=== PATIENT | male | born 1965 | race Caucasian/White ===

== ENCOUNTER 2016-03-24 09:39 | Outpatient (CLI) | payer OTHER ==
[2016-03-24 11:48] LABS: #Basophils 0.1 thou/uL (0.0-0.2); #Eosinphils 0.1 thou/uL (0.0-0.7); #Lymphocytes 0.8 thou/uL (1.20-3.40); #Monocytes 0.5 thou/uL (0.11-0.59); #Neutrophils 2.8 thou/uL (1.40-6.50); %Basophils 1.7 % (0.0-1.0); %Eosinophils 2.4 % (0.0-10.0); %Monocytes 12.1 % (0.0-10.0); Hematocrit 44.3 % (42.0-52.0); Mean Platelet Volume 7.1 fL (7.4-10.4); White Blood Cell (WBC) Count 4.3 thou/uL (4.8-10.8)
[2016-03-24 12:04] LABS: ALT (SGPT) 49 U/L (0-55); AST (SGOT) 53 U/L (5-34); Alkaline Phosphatase 61 U/L (40-150); Anion Gap 15 mmol/L (10-20); BUN (Urea Nitrogen) 5 mg/dL (8.9-20.6); Bilirubin, Total 0.8 mg/dL (0.2-1.2); Calc. Creatinine Clearance 0 mL/min (70-130); Calcium 9.5 mg/dL (7.8-10.44); Carbon Dioxide 26 mmol/L (22-29); Chloride 104 mmol/L (98-107); Estimated GFR-MDRD 81; Globulin 3.5 g/dL (2.4-3.5); LDL Cholesterol, Calculated 97 mg/dL; Protein, Total 7.8 g/dL (6.0-8.3)
== END 2016-03-24 09:40 | disposition home or self-care (01) ==
LOC: BURLAB 09:39
PROVIDERS: ATTEND Physician Assistant
DX: I10 Essential (primary) hypertension (principal)
CPT/HCPCS: 36415; 80053; 80061; 84443; 85025

== ENCOUNTER 2016-07-18 14:13 | Outpatient (CLI) | payer OTHER ==
[2016-07-18 17:10] LABS: #Basophils 0.1 thou/uL (0.0-0.2); #Eosinphils 0.1 thou/uL (0.0-0.7); #Monocytes 0.5 thou/uL (0.11-0.59); #Neutrophils 4.8 thou/uL (1.40-6.50); %Basophils 1.3 % (0.0-1.0); %Eosinophils 1.6 % (0.0-10.0); %Lymphocytes 17.8 % (21.0-51.0); %Monocytes 7.6 % (0.0-10.0); %Neutrophils 71.7 % (42.0-75.0); Hemoglobin 14.7 g/dL (14.0-18.0); MDiff Complete? YES; Manual Diff?? NO; Mean Corpuscular HGB CONC 34.8 g/dL (32.0-36.0); Mean Corpuscular Hemoglobin 34.8 pg (27.0-31.0); Mean Corpuscular Volume 99.8 fl (80.0-94.0); Mean Platelet Volume 8.4 fL (7.4-10.4); Platelet Count 223 thou/uL (130-400); RBC Distribution Width 11.5 % (11.5-14.5); Red Blood Cell (RBC) Count 4.24 mill/uL (4.70-6.10); White Blood Cell (WBC) Count 6.6 thou/uL (4.8-10.8)
== END 2016-07-18 14:14 ==
LOC: HPCALD 14:13
PROVIDERS: ATTEND Physician Assistant
DX: D72.819 Decreased white blood cell count, unspecified (principal)
CPT/HCPCS: 36415; 85025

== ENCOUNTER 2016-07-25 08:57 | Outpatient (CLI) | payer OTHER ==
[2016-07-25] MEDS ORDERED: Iopamidol 370 76% 100 ML VIAL ONE (09:00)
--- NOTE | 2016-07-25 22:22 | CT ---
CT OF THE NECK SOFT TISSUES WITH CONTRAST 07/25/[address] of the neck was performed. Axial slices were acquired, then coronal and sagittal reconstru ctions were done. No oropharyngeal masses were appreciated. Soft tissues of the laryngeal region were reasonably symme trical. There was no amount of excessive cervical adenopathy. The patient's submandibular glands wer e somewhat generous in size but symmetrical. A minimal amount of mucosal thickening was seen in the floor of the left maxillary sinus. There were no structures that pathologically enhanced. There are numerous degenerative changes throughout the cervical spine. In particular there is a very large anterior osteophyte at C6-C7 protruding towards the left. This could be a potential cause for dysphagia as it does appear to impinge upon the esophagus slightly. IMPRESSION: 1. No acute pathology identified. 2. Very large anterior osteophyte towards the left at C6-C7, a possible cause of dysphagia. POS: HOME
== END 2016-07-25 08:58 | disposition home or self-care (01) ==
LOC: BURCT 08:57
PROVIDERS: ATTEND Physician Assistant
DX: D72.819 Decreased white blood cell count, unspecified (principal); R49.0 Dysphonia; R59.1 Generalized enlarged lymph nodes
CPT/HCPCS: 70491

== ENCOUNTER 2016-09-25 14:26 | Outpatient (CLI) | payer OTHER ==
[2016-09-25 14:53] LABS: #Basophils 0.1 thou/uL (0.0-0.2); #Lymphocytes 1.1 thou/uL (1.20-3.40); #Monocytes 0.7 thou/uL (0.11-0.59); #Neutrophils 7.6 thou/uL (1.40-6.50); %Basophils 1.1 % (0.0-1.0); %Eosinophils 0.5 % (0.0-10.0); %Lymphocytes 11.4 % (21.0-51.0); %Monocytes 7.1 % (0.0-10.0); %Neutrophils 79.9 % (42.0-75.0); Hemoglobin 14.7 g/dL (14.0-18.0); Mean Corpuscular HGB CONC 34.4 g/dL (32.0-36.0); Mean Corpuscular Hemoglobin 34.2 pg (27.0-31.0); Mean Corpuscular Volume 99.4 fl (80.0-94.0); Mean Platelet Volume 8.1 fL (7.4-10.4); Platelet Count 230 thou/uL (130-400); RBC Distribution Width 11.6 % (11.5-14.5); White Blood Cell (WBC) Count 9.6 thou/uL (4.8-10.8)
[2016-09-25 14:55] LABS: MDiff Complete? YES; Manual Diff?? NO
[2016-09-25 15:06] LABS: ALT (SGPT) 40 U/L (8-55); AST (SGOT) 36 U/L (5-34); Albumin 4.4 g/dL (3.5-5.0); Alkaline Phosphatase 71 U/L (40-150); Anion Gap 15 mmol/L (10-20); BUN (Urea Nitrogen) 14 mg/dL (8.9-20.6); Bilirubin, Total 0.8 mg/dL (0.2-1.2); Calc. Creatinine Clearance 0 mL/min (70-130); Calcium 9.3 mg/dL (7.8-10.44); Carbon Dioxide 26 mmol/L (22-29); Chloride 99 mmol/L (98-107); Estimated GFR-MDRD 75; Globulin 3.4 g/dL (2.4-3.5); Glucose 89 mg/dL (70-105); Lipase 38 U/L (8-78); Potassium 4.2 mmol/L (3.5-5.1); Protein, Total 7.8 g/dL (6.0-8.3); Sodium 136 mmol/L (136-145)
== END 2016-09-25 14:27 | disposition home or self-care (01) ==
LOC: HPCALD 14:26
PROVIDERS: ATTEND Physician Assistant
DX: R10.10 Upper abdominal pain, unspecified (principal)
CPT/HCPCS: 36415; 80053; 83690; 85025

== ENCOUNTER 2019-01-18 15:13 | Emergency (ER) | payer OTHER ==
[~2019-01-18 15:13] MED LIST: Iopamidol 370 76% 100 ML VIAL ONE
[2019-01-18] MEDS ORDERED: Metoprolol Tartrate 5 MG/5 ML VIAL ONE (15:28)
[2019-01-18] MEDS ORDERED: Fentanyl 100 MCG/2 ML VIAL ONE (15:28)
[2019-01-18 15:47] LABS: ALT (SGPT) 31 U/L (8-55); AST (SGOT) 30 U/L (5-34); Albumin 4.3 g/dL (3.5-5.0); Alkaline Phosphatase 71 U/L (40-110); Anion Gap 15 mmol/L (10-20); BUN (Urea Nitrogen) 5 mg/dL (8.4-25.7); Bilirubin, Total 0.6 mg/dL (0.2-1.2); Calc. Creatinine Clearance 0 mL/min (70-130); Calcium 9.2 mg/dL (7.8-10.44); Carbon Dioxide 26 mmol/L (22-29); Chloride 104 mmol/L (98-107); Estimated GFR-MDRD 72; Globulin 3.3 g/dL (2.4-3.5); Glucose 125 mg/dL (70-105); Potassium 3.9 mmol/L (3.5-5.1); Protein, Total 7.6 g/dL (6.0-8.3); Sodium 141 mmol/L (136-145)
[2019-01-18 15:48] LABS: #Basophils 0.1 thou/uL (0.0-0.2); #Eosinphils 0.3 thou/uL (0.0-0.7); #Lymphocytes 1.8 thou/uL (1.20-3.40); #Monocytes 0.7 thou/uL (0.11-0.59); #Neutrophils 4.8 thou/uL (1.40-6.50); %Basophils 1.3 % (0.0-1.0); %Eosinophils 3.7 % (0.0-10.0); %Lymphocytes 23.3 % (21.0-51.0); %Monocytes 8.8 % (0.0-10.0); Hemoglobin 14.6 g/dL (14.0-18.0); MDiff Complete? YES; Macrocytosis SLIGHT = 6-15 cells (100X) (0-5/hpf); Mean Corpuscular HGB CONC 33.4 g/dL (32.0-36.0); Mean Corpuscular Hemoglobin 34.1 pg (27.0-31.0); Mean Platelet Volume 8.7 fL (7.4-10.4); Platelet Count 238 thou/uL (130-400); RBC Distribution Width 11.8 % (11.5-14.5); Red Blood Cell (RBC) Count 4.28 mill/uL (4.70-6.10); White Blood Cell (WBC) Count 7.6 thou/uL (4.8-10.8)
[2019-01-18 15:53] LABS: INR-International Normal Ratio 0.9; Prothrombin Time 12.1 SEC (12.0-14.7)
[2019-01-18 15:55] LABS: Bilirubin Small (Negative); Blood, Urine Negative (Negative); Clarity Slightly Cloudy (Clear); Glucose, Urine (Dipstick) Negative (Negative); Leukocyte Negative (Negative); Nitrite Negative (Negative); Protein, Urine (Dipstick) Negative (Neg-Trace); Urobilinogen 0.2 mg/dL (Less than 2)
[2019-01-18 15:57] LABS: PTT 22.4 SEC (22.9-36.1)
[2019-01-18 16:01] LABS: D-Dimer Test 0.74 *mcg/mL (0.27-0.43)
--- NOTE | 2019-01-18 21:54 | CT ---
CT AORTIC DISSECTION WITH CONTRAST: 01/18/[address] of the lower chest, abdomen, and upper pelvis was performed to evaluate the abdominal aorta for possible dissection. The patient presents with low abdominal pain that is severe. Axial slices w ere acquired after a bolus of IV contrast and coronal and sagittal MIP projections and reconstruction s were done. There is excellent opacification of the abdominal aorta and low descending thoracic aorta. There was no sign of dissection or aneurysm. The celiac artery, SMA and SOFIA fill appropriately, as do the renal arteries and iliac arteries. The lung bases are clear except for some atelectasis in the lower lobes. A small hiatal hernia is pre sent. There is considerable fluid in the stomach. The liver, spleen, pancreas, gallbladder, adrenal g lands, and kidneys were unremarkable in appearance. No free air of free fluid was seen. Some of the loops of small bowel are fluid filled but not distend ed. There is no inflammatory change seen around bowel. The pelvic portion of the CT shows some thicke trey of the urinary bladder wall, however, it is not completely distended which may falsely over repr esent the thickness. Severe grade II spondylolisthesis of L5 on S1 with spondylolysis is noted, not a new finding in this patient. IMPRESSION: 1. No evidence of aortic dissection or aneurysm. 2. No acute abdominal findings to explain the patient's pain. 3. Concentric thickening of the urinary bladder wall. Cystitis versus underdistention. 4. Grade II spondylolisthesis of L5 on S1. 5. Small hiatal hernia. POS: HOME
== END 2019-01-18 16:57 | disposition home or self-care (01) ==
LOC: BURERS 15:13
DX: R10.30 Lower abdominal pain, unspecified (principal); R11.0 Nausea; I10 Essential (primary) hypertension; F17.220 Nicotine dependence, chewing tobacco, uncomplicated
CPT/HCPCS: 71275; 72191; 74175; 80053; 80307; 81003; 83605; 83690; 84484; 85025; 85379; 85610; 85730; 96374; 96375; J3010; Q9967

== ENCOUNTER 2019-02-18 08:26 | Emergency (ER) | payer OTHER ==
[2019-02-18] MEDS ORDERED: Morphine 4 MG/ML VIAL ONE ×2 (08:45→10:17)
[2019-02-18] MEDS ORDERED: Ketorolac Tromethamine 30 MG/ML VIAL ONE (08:45)
[2019-02-18] MEDS ORDERED: Ondansetron PF 4 MG/2 ML Vial ONE (08:45)
[2019-02-18 09:03] LABS: #Basophils 0.1 thou/uL (0.0-0.2); #Eosinphils 0.1 thou/uL (0.0-0.7); #Lymphocytes 0.9 thou/uL (1.20-3.40); #Monocytes 0.6 thou/uL (0.11-0.59); #Neutrophils 7.2 thou/uL (1.40-6.50); %Basophils 0.8 % (0.0-1.0); %Eosinophils 0.6 % (0.0-10.0); %Lymphocytes 10.4 % (21.0-51.0); %Monocytes 6.3 % (0.0-10.0); %Neutrophils 81.9 % (42.0-75.0); Hemoglobin 15.3 g/dL (14.0-18.0); Mean Corpuscular HGB CONC 34.7 g/dL (32.0-36.0); Mean Corpuscular Hemoglobin 34.5 pg (27.0-31.0); Mean Corpuscular Volume 99.6 fL (78.0-98.0); Mean Platelet Volume 8.8 fL (7.4-10.4); Platelet Count 239 thou/uL (130-400); RBC Distribution Width 11.4 % (11.5-14.5); Red Blood Cell (RBC) Count 4.43 mill/uL (4.70-6.10); White Blood Cell (WBC) Count 8.8 thou/uL (4.8-10.8)
[2019-02-18 09:12] LABS: ALT (SGPT) 34 U/L (8-55); AST (SGOT) 39 U/L (5-34); Albumin 4.5 g/dL (3.5-5.0); Alkaline Phosphatase 71 U/L (40-110); Anion Gap 17 mmol/L (10-20); BUN (Urea Nitrogen) 6 mg/dL (8.4-25.7); Bilirubin, Total 1.4 mg/dL (0.2-1.2); Calc. Creatinine Clearance 0 mL/min (70-130); Calcium 9.1 mg/dL (7.8-10.44); Carbon Dioxide 22 mmol/L (22-29); Chloride 101 mmol/L (98-107); Estimated GFR-MDRD Greater than 90; Globulin 3.5 g/dL (2.4-3.5); Glucose 160 mg/dL (70-105); Lipase 12 U/L (8-78); Potassium 3.4 mmol/L (3.5-5.1); Sodium 137 mmol/L (136-145)
[2019-02-18] MEDS ORDERED: Fentanyl 100 MCG/2 ML VIAL ONE ×2 (09:15→09:32)
[2019-02-18 09:16] LABS: Platelet Morphology Comment Appears Adequate; RBC Morphology Normal
[2019-02-18] MEDS ORDERED: Ketamine 50 MG/ML (10ML VIAL) ONE (09:50)
[2019-02-18] MEDS ORDERED: Morphine 2 MG/ML SYRINGE ONE (10:17)
[2019-02-18 11:16] LABS: Bilirubin Negative (Negative); Blood, Urine Negative (Negative); Clarity Slightly Cloudy (Clear); Glucose, Urine (Dipstick) Negative (Negative); Leukocyte Negative (Negative); Nitrite Negative (Negative); Protein, Urine (Dipstick) Negative (Neg-Trace); Urobilinogen 0.2 mg/dL (Less than 2)
--- NOTE | 2019-02-18 17:05 | CT ---
CT ABDOMEN AND PELVIS WITH CONTRAST: 02/18/[address] of the abdomen and pelvis was done post IV contrast for evaluation of lower abdominal pain. Axial slices were acquired followed by coronal and sagittal reconstructions. The major finding on this study is a right inguinal hernia containing a large amount of bowel within the scrotal sac. This appears to be mainly small intestines. There is probably some incarceration of the hernia. Some of the small bowel proximal to it is mildly dilated and fluid filled. Thus, there is likely at least a partial obstruction. No free air or free fluid was seen in the abdomen or pelvis. The lung bases are clears. The liver, spleen, pancreas, adrenal glands, gallbladder and abdominal aor ta were unremarkable in appearance. There are several lucencies scattered throughout each kidney. Sta tistically, These are most likely cysts, but I would definitely recommend an elective ultrasound to b e certain, particularly in the right kidney. There is no hydronephrosis. The mesenteric vessels fill normally. CT of the pelvis was remarkable for the inguinal findings listed above. There were no other acute moiz nges of concern. An incidental finding on the study is a very prominent spondylolisthesis of L5 on S1 , at least a grade II. There is bilateral spondylolysis. IMPRESSION: 1. Incarcerated right inguinal hernia with a large amount of small bowel in the scrotal sac and some evidence of at least partial obstruction of the small bowel. 2. Several renal lucencies, most likely cysts. Nevertheless, an elective ultrasound is recommend ed. 3. Moderately severe spondylolisthesis of L5 on S1. Hernia findings and renal findings discussed with Dr. Campos at 0908 on 02/18/19. POS: HOME
== END 2019-02-18 11:04 | disposition short-term general hospital (02) ==
LOC: BURERS 08:26
DX: K46.0 Unspecified abdominal hernia with obstruction, without gangrene (principal); I10 Essential (primary) hypertension; F17.220 Nicotine dependence, chewing tobacco, uncomplicated
CPT/HCPCS: 74177; 80053; 81003; 83605; 83690; 84484; 85025; 96361; 96374; 96375; 96376; J1885; J2270; J2405; J3010